=== PATIENT | male | born 1960 | race African-American/Black ===

== ENCOUNTER 2025-04-24 21:37 | Inpatient (IN) | payer OTHER ==
[2025-04-24] MEDS ORDERED: ALBUTEROL SO4 2.5/IPRATROPIUM 0.5 INH SOL 3 ML VIAL.NEB. NEB ONE (22:16)
[2025-04-24] MEDS ORDERED: predniSONE 20 MG TABLET (UD) ONE ×2 (22:17→22:38)
[2025-04-24] MEDS ORDERED: predniSONE 10 MG TABLET (UD) ONE (22:38)
[2025-04-24] MEDS: predniSONE 20 MG TABLET (UD) PO ONE (22:39)
[2025-04-24] MEDS: ALBUTEROL SO4 2.5/IPRATROPIUM 0.5 INH SOL 3 ML VIAL.NEB. NEB ONE (22:39)
[2025-04-24 23:56] LABS: BG HCT 41.0 % (35.4-49); VENOUS BASE EXCESS 5.3 mmol/L (-2-2); VENOUS O2 SATURATION 61.1 % (70-80); VENOUS PH 7.21 (7.310-7.410)
[2025-04-24 23:58] LABS: VENOUS PCO2 93.9 mmHg (38-52)
[2025-04-25 00:31] LABS: ABSOLUTE IMMATURE GRANULOCYTES 0.03 x10^3/uL (0.0-0.031); BASOPHILS # 0.02 x10^3/uL (0.01-0.08); EOSINOPHIL % 4.3 % (0.8-7.0); EOSINOPHILS # 0.35 x10^3/uL (0.04-0.54); MCHC 30.4 g/dl (32.3-36.5); MEAN CELL VOLUME 89.8 fl (79.0-92.2); MEAN PLT VOLUME 9.3 fl (9.4-12.4); MONOCYTE # 0.55 x10^3/uL (0.30-0.82); MONOCYTE % 6.7 % (5.3-12.2); RDW 13.9 % (12.2-16.4)
[2025-04-25 01:00] LABS: GLUCOSE,RANDOM 109.0 mg/dL (74-106)
[2025-04-25 01:01] LABS: TOT PROT 7.4 g/dl (6.4-8.2)
[2025-04-25 01:03] LABS: ALK PHOS 71.0 U/L (40-150)
[2025-04-25 01:06] LABS: SGOT/AST 30.0 U/L (5-34); SGPT/ALT 23.0 U/L (0-55)
[2025-04-25 01:22] LABS: CO2 35.0 mmol/L (21-32); CREATININE 0.6 mg/dL (0.55-1.3)
[2025-04-25 01:35] LABS: HIV INTERPRETATION NEGATIVE (NEGATIVE)
[2025-04-25 02:40] LABS: BG HCT 41.0 % (35.4-49); VENOUS BASE EXCESS 3.2 mmol/L (-2-2); VENOUS O2 SATURATION 46.4 % (70-80); VENOUS PH 7.219 (7.310-7.410)
[2025-04-25 02:44] LABS: VENOUS PCO2 84.6 mmHg (38-52)
[2025-04-25 02:48] LABS: ARTERIAL BLD GAS O2 SATURATION 97.4 % (95-98); ARTERIAL BLOOD GAS BASE EXCESS 5.5 mmol/L (-2-2); ARTERIAL BLOOD GAS PCO2 60.70 mmHg (35-45); ARTERIAL BLOOD GAS PO2 104.5 mmHg (80-100); BG HCT 40.0 % (35.4-49)
[2025-04-25 02:49] LABS: ALLENS TEST POSITIVE
[2025-04-25 02:50] LABS: VENT RATE 14
[2025-04-25 02:56] LABS: HCV DIAGNOSTIC IN-HOUSE W/RFLX REACTIVE (NONREACTIVE)
[2025-04-25 04:05] LABS: EPI CELLS 0 /uL (0-25.1); HYALINE CASTS 0 /uL (0-3.1); URINE APPEARANCE CLOUDY; URINE BACTERIA >9,000 /uL (0-1359); URINE BILIRUBIN NEGATIVE (NEGATIVE); URINE COLOR YELLOW; URINE GLUCOSE (UA) NEGATIVE (NEGATIVE); URINE KETONE NEGATIVE (NEGATIVE); URINE LEUK ESTERASE 1+ (NEGATIVE); URINE NITRITE POSITIVE (NEGATIVE); URINE PROTEIN NEGATIVE (NEGATIVE); URINE RBC 8 /uL (0-23.9); URINE UROBILINOGEN 0.2 mg/dL (0.2-1.0); URINE WBC 121 /uL (0-25.8)
[2025-04-25] MEDS ORDERED: METHOCARBAMOL 500 MG TABLET PO PRN (04:26)
[2025-04-25] MEDS ORDERED: ALBUTEROL SO4 HFA INHALER IH SCH (04:30)
[2025-04-25] MEDS ORDERED: ALBUTEROL SO4 HFA INHALER IH ONE (05:37)
[2025-04-25] MEDS: PERMETHRIN 5% TOPICAL CREAM 60 GM TUBE TP SCH (06:44)
[2025-04-25] MEDS: IVERMECTIN 3 MG TABLET PO ONE (06:45)
[2025-04-25] MEDS ORDERED: ALBUTEROL SO4 2.5/IPRATROPIUM 0.5 INH SOL 3 ML VIAL.NEB. NEB SCH (08:00)
[2025-04-25 08:25] LABS: MCHC 30.9 g/dl (32.3-36.5); MEAN CELL VOLUME 88.3 fl (79.0-92.2); MEAN PLT VOLUME 9.4 fl (9.4-12.4); RDW 13.9 % (12.2-16.4)
[2025-04-25 08:42] LABS: GLUCOSE,RANDOM 108 mg/dL (74-106)
[2025-04-25 08:43] LABS: TOT PROT 8.6 g/dl (6.4-8.2)
[2025-04-25 08:44] LABS: CO2 27 mmol/L (21-32)
[2025-04-25 08:45] LABS: ALK PHOS 76 U/L (40-150)
[2025-04-25 08:48] LABS: CREATININE 0.62 mg/dL (0.55-1.3); SGOT/AST 44 U/L (5-34); SGPT/ALT 24 U/L (0-55)
[2025-04-25] MEDS ORDERED: TIOTROPIUM BROMIDE 2.5 MCG (SPIRIVA) RESPIMAT INHALER IH SCH (10:00)
[2025-04-25] MEDS ORDERED: FLUTICASONE/UMECLIDIN/VILANTER(100-62.5-25 TRELEGY ELLIPTA) INAHLER IH SCH (10:00)
[2025-04-25] MEDS ORDERED: predniSONE 20 MG TABLET (UD) PO SCH (10:00)
[2025-04-25] MEDS ORDERED: ALBUTEROL SO4 2.5/IPRATROPIUM 0.5 INH SOL 3 ML VIAL.NEB. NEB ONE (10:42)
[2025-04-25] MEDS ORDERED: methylPREDNISolone NA SUCC 40 MG/1 ML VIAL ONE ×2 (11:14→18:24)
[2025-04-25] MEDS ORDERED: THIAMINE 100 MG TABLET ONE (11:14)
[2025-04-25] MEDS: methylPREDNISolone NA SUCC 40 MG/1 ML VIAL IVPUSH SCH (11:28)
[2025-04-25] MEDS: THIAMINE 100 MG TABLET PO SCH (11:28)
[2025-04-25] MEDS: ALBUTEROL SO4 2.5/IPRATROPIUM 0.5 INH SOL 3 ML VIAL.NEB. NEB SCH (11:28)
[2025-04-25] MEDS: BUDESONIDE/FORMETEROL FUMARATE 160/4.5 mcg INHALER IH SCH (13:30)
[2025-04-25] MEDS: MIRTAZAPINE 15 MG TABLET (FP) PO SCH (21:46)
[2025-04-26 04:45] VITALS: BMI 24.4
[2025-04-26 09:10] LABS: GLUCOSE,RANDOM 94.0 mg/dL (74-106)
[2025-04-26 09:12] LABS: CO2 30.0 mmol/L (21-32)
[2025-04-26 09:16] LABS: CREATININE 0.85 mg/dL (0.55-1.3)
[2025-04-26] MEDS: CEFTRIAXONE 1 GM in DEXTROSE 5%-WATER - 50 ML IVPB SCH (13:47)
[2025-04-27 09:36] LABS: GLUCOSE,RANDOM 82.0 mg/dL (74-106)
[2025-04-27 09:42] LABS: CREATININE 0.88 mg/dL (0.55-1.3)
[2025-04-27 09:47] LABS: CO2 29.0 mmol/L (21-32)
[2025-04-27] MEDS: ENOXAPARIN NA (PORCINE) 40 MG/0.4 ML DISP.SYRIN SQ SCH (11:22)
[2025-04-27] MEDS: POLYETHYLENE GLYCOL (HEALTHYLAX) 3350 17 GM PACKET PO SCH (11:24)
[2025-04-27] MEDS: methylPREDNISolone NA SUCC 40 MG/1 ML VIAL IVPUSH SCH (22:04)
[2025-04-28 08:56] LABS: MCHC 31.4 g/dl (32.3-36.5); MEAN CELL VOLUME 87.2 fl (79.0-92.2); MEAN PLT VOLUME 9.5 fl (9.4-12.4); RDW 14.1 % (12.2-16.4)
[2025-04-28 09:48] LABS: GLUCOSE,RANDOM 83.0 mg/dL (74-106)
[2025-04-28 09:53] LABS: CREATININE 0.79 mg/dL (0.55-1.3)
[2025-04-28 10:15] LABS: CO2 36.0 mmol/L (21-32)
[2025-04-28] MEDS: FUROSEMIDE 40 MG/4 ML INJECTABLE VIAL IVPUSH ONE (11:31)
[2025-04-28] MEDS ORDERED: ACETAMINOPHEN 325 MG TABLET (FP) PO PRN (11:45)
[2025-04-28] MEDS: KETOROLAC TROMETHAMINE 10 MG TABLET PO ONE (12:06)
[2025-04-28] MEDS: NICOTINE POLACRILEX 4 MG GUM BUC PRN (18:19)
[2025-04-29 09:30] LABS: MCHC 31.4 g/dl (32.3-36.5); MEAN CELL VOLUME 86.7 fl (79.0-92.2); MEAN PLT VOLUME 9.1 fl (9.4-12.4); RDW 14.2 % (12.2-16.4)
[2025-04-29 10:00] LABS: GLUCOSE,RANDOM 119.0 mg/dL (74-106)
[2025-04-29 10:01] LABS: TOT PROT 7.5 g/dl (6.4-8.2)
[2025-04-29 10:02] LABS: CO2 33.0 mmol/L (21-32)
[2025-04-29 10:03] LABS: ALK PHOS 67.0 U/L (40-150)
[2025-04-29 10:06] LABS: CREATININE 0.86 mg/dL (0.55-1.3); SGOT/AST 27.0 U/L (5-34); SGPT/ALT 24.0 U/L (0-55)
[2025-04-29] MEDS: FUROSEMIDE 20 MG TABLET (FP) PO SCH (11:22)
[2025-04-30] MEDS: ALBUTEROL SO4 2.5/IPRATROPIUM 0.5 INH SOL 3 ML VIAL.NEB. NEB PRN (07:38)
[2025-04-30 07:44] VITALS: RESP 18
[2025-04-30] MEDS: methylPREDNISolone NA SUCC 40 MG/1 ML VIAL IVPUSH SCH (11:39)
[2025-04-30] MEDS: MIRTAZAPINE 15 MG TABLET (FP) PO SCH (22:19)
[2025-04-30] MEDS: POLYETHYLENE GLYCOL (HEALTHYLAX) 3350 17 GM PACKET PO SCH (22:19)
[2025-04-30] MEDS: BUDESONIDE/FORMETEROL FUMARATE 160/4.5 mcg INHALER IH SCH (22:25)
[2025-05-01 06:57] LABS: MCHC 30.7 g/dl (32.3-36.5)
[2025-05-01 07:06] LABS: MEAN CELL VOLUME 88.4 fl (79.0-92.2); MEAN PLT VOLUME 9.3 fl (9.4-12.4); RDW 14.5 % (12.2-16.4)
[2025-05-01 07:10] LABS: GLUCOSE,RANDOM 124.0 mg/dL (74-106); TOT PROT 7.1 g/dl (6.4-8.2)
[2025-05-01 07:11] LABS: CO2 33.0 mmol/L (21-32)
[2025-05-01 07:15] LABS: SGOT/AST 19.0 U/L (5-34); SGPT/ALT 21.0 U/L (0-55)
[2025-05-01 07:16] LABS: CREATININE 0.98 mg/dL (0.55-1.3)
[2025-05-01 07:19] LABS: ALK PHOS 60.0 U/L (40-150)
[2025-05-01 07:39] VITALS: PULSE 65
[2025-05-01] MEDS: CEFTRIAXONE 1 GM in DEXTROSE 5%-WATER - 50 ML IVPB SCH (11:16)
[2025-05-01] MEDS: ENOXAPARIN NA (PORCINE) 40 MG/0.4 ML DISP.SYRIN SQ SCH (11:17)
[2025-05-01] MEDS: PERMETHRIN 5% TOPICAL CREAM 60 GM TUBE TP SCH (11:17)
[2025-05-01] MEDS: LACTOBACILLUS ACIDOPHILUS 1 TABLET PO SCH (11:17)
[2025-05-01] MEDS: METHOCARBAMOL 500 MG TABLET PO PRN (11:17)
[2025-05-01] MEDS: THIAMINE 100 MG TABLET PO SCH (11:18)
[2025-05-01] MEDS: NICOTINE POLACRILEX 4 MG GUM BUC PRN (11:19)
[2025-05-01 16:14] VITALS: BP 103/76; TEMP 98.6
[2025-05-01] MEDS: AMOX TR/POT CLAV 875MG/125MG TABLETS (FP) PO SCH (17:37)
[2025-05-01] MEDS: IVERMECTIN 3 MG TABLET PO ONE (18:15)
[2025-05-02] MEDS ORDERED: IVERMECTIN 3 MG TABLET PO ONE (10:00)
[2025-05-02] MEDS ORDERED: predniSONE 20 MG TABLET (UD) PO SCH (10:00)
== END 2025-05-01 19:35 | disposition home or self-care (01) | DRG 140 ==
LOC: JER 21:37 → JERBED 21:39 → J4S 04-25 19:56 → J8W 04-30 12:57
PROVIDERS: ADMIT Internal Medicine; ATTEND Psychiatry & Neurology Pain Medicine
DX: J44.1 Chronic obstructive pulmonary disease with (acute) exacerbation (principal); F31.9 Bipolar disorder, unspecified; J96.21 Acute and chronic respiratory failure with hypoxia; J96.22 Acute and chronic respiratory failure with hypercapnia; F11.20 Opioid dependence, uncomplicated; D64.9 Anemia, unspecified; F17.210 Nicotine dependence, cigarettes, uncomplicated; B86 Scabies; N39.0 Urinary tract infection, site not specified
CPT/HCPCS: 36415; 36600; 71045-TC-FY; 71250-TC; 80048; 80053; 81003; 82803; 83735; 83880; 84100; 84484; 85025; 85027; 86803; 87086; 87389; 87522; 87637-QW; 93005; 93010; 93970-TC; 94640; 94660; 99285-25